=== PATIENT | female | born 1960 | race Caucasian/White ===

== ENCOUNTER 2019-04-08 07:53 | Day surgery (SDC) | payer OTHER ==
[2019-04-08] VITALS (9 sets, daily range): BP systolic 109–155; BP diastolic 68–91; PULSE 71–80; RESP 16–23; Ht 165.1 cm; Wt 72.9 kg
[~2019-04-08] VITALS: Ht 165.1 cm; Wt 72.9 kg
[2019-04-08] MEDS ORDERED: LEVO100T82 PO (08:39)
[2019-04-08] MEDS ORDERED: METO-429 PO (08:40)
[2019-04-08] MEDS ORDERED: ATOR40TA68 PO (08:40)
[2019-04-08] MEDS ORDERED: AMIT25TA9 PO (08:41)
[2019-04-08] MEDS ORDERED: BUPIVACAINE 0.25% (MPF) 30 ML INJ ONE (11:19)
--- NOTE | 2019-04-08 11:21 | PREAC ---
Date/Time of Note Date/Time of Note DATE: 04/08/19 TIME: 11:19 Anesthesia Eval and Record Evaluation Time Pre-Procedure Interview DATE: 04/08/19 TIME: 11:19 Age 58 Sex female NPO: 8 hrs Preoperative diagnosis Right breast mass Planned procedure Excision of mass Past Medical History Past Medical History: Includes Cardio: HTN, Dyslipidemia Endo: Hypothyroid Surgery & Anesthesia Issues No known issue Meds Anticoagulation: No Beta Misael within 24 hr: Yes Reported Medications Amitriptyline Hcl* (Amitriptyline Hcl*) 25 Mg Tablet, 25 MG PO QHS, #30 TAB 04/08/19 Metoprolol Tartrate* (Lopressor*) 50 Mg Tab, 50 MG PO DAILY, #60 TAB 04/08/19 Atorvastatin* (Atorvastatin*) 40 Mg Tablet, 40 MG PO QHS, #30 TAB 04/08/19 Levothyroxine Sodium* (Levoxyl*) 100 Mcg Tablet, 100 MCG PO BEFORE BREAKFAST, #30 TAB 04/08/19 Meds reviewed: Yes Allergies Coded Allergies: omega-3 acid ethyl esters (Verified Allergy, Unknown, RASH, 04/08/19) Allergies Reviewed: Yes Labs/Studies Labs Reviewed: Reviewed by anesthesiologist test: N/A Pre-procedure Exam Last vitals Vital Signs Date Temp Pulse Resp B/P (MAP) Pulse Ox O2 O2 Flow FiO2 Time Delivery Rate 04/08/19 97.9 74 16 140/84 96 Room Air 09:45 (102) Airway: Adequate mouth opening Mallampati: Mallampati I Teeth: Normal Lung: Normal Heart: Normal ASA Physical Status ASA physical status: 2 Emergency: None Planned Anesthetic General/MAC: LMA Planned Pain Management Parenteral pain med Pre-operative Attestations Prior to commencing anesthesia and surgery, the patient was re-evaluated, there was verification of: *The patient's identity *The results of appropriate recent lab work and preoperative vital signs *The above evaluation not changing prior to induction *Anesthetic plan, risk benefits, alternative and complications discussed with patient/family; questions answered; patient/family understands, accepts and wishes to proceed. DALJIT EDDY MD April 08, 2019 11:21
[2019-04-08] MEDS ORDERED: CEFAZOLIN 1 GM INJ ONE (11:36)
[2019-04-08] MEDS ORDERED: ONDANSETRON 4 MG INJ ONE (11:36)
[2019-04-08] MEDS ORDERED: PROPOFOL 20 ML ONE (11:36)
[2019-04-08] MEDS ORDERED: LIDOCAINE 2% (SDV) 5 ML INJ ONE (11:36)
[2019-04-08] MEDS ORDERED: METOCLOPRAMIDE 10 MG INJ ONE (11:36)
--- NOTE | 2019-04-08 12:20 | OPR ---
Date/Time of Note Date/Time of Note DATE: 04/08/19 TIME: 12:17 Operative Report Procedure Date: April 08, 2019 Preoperative Diagnosis right breast mass Postoperative Diagnosis same Operation/Procedure Performed 1. excision of right breast mass 5 cm mass 5 cm incision 2. localized adjacent tissue transfer with the use of skin flaps 10 sq cm defect of right breast 3. 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 She required surgical excision of the right breast mass. Risks alternatives benefits and percent were discussed the patient. Patient expressed understanding and consents to the operation. Procedure Description Patient is taken to the OR and prepped and draped in usual sterile fashion. Surgical timeout was performed. IV antibiotics given. Elliptical incision was made with a 15 blade around the right breast mass. Dissection with cautery was carried onto the mass and the mass was circumferentially excised. Good hemostasis established. Due to tissue defect localized adjacent tissue transfer with use of skin flaps was performed. Multilayer closer with interrupted 3-0 Vicryl in interrupted 2-0 Vicryl. Skin is closed using skin mariana. Therapeutic subcutaneous local anesthesia was injected at the incision site. Steri-Strips and dry dressings were applied. Daysi BUTLER April 08, 2019 12:20
[2019-04-08] MEDS ORDERED: ONDANSETRON 4 MG INJ IV PRN (12:30)
[2019-04-08] MEDS ORDERED: METOCLOPRAMIDE 10 MG INJ IV PRN (12:30)
[2019-04-08] MEDS ORDERED: MEPERIDINE 25 MG INJ IV PRN (12:30)
[2019-04-08] MEDS ORDERED: MIDAZOLAM 1 MG/ML 2 ML INJ IV PRN (12:30)
[2019-04-08] MEDS ORDERED: FENTAnyl 50 MCG/ML VIAL IV PRN ×3 (12:30)
[2019-04-08] MEDS ORDERED: hydrALAzine 20 MG INJ IV PRN (12:30)
[2019-04-08] MEDS ORDERED: EPHEDrine 25 MG/5 ML SYG IV PRN (12:30)
[2019-04-08] MEDS ORDERED: HYDROCODONE/APAP (5/325) TAB PO ONE (12:30)
[2019-04-08] MEDS ORDERED: OXYCODONE/ACETAMINOPHEN (5/325) TAB PO PRN ×2 (12:30)
[2019-04-08] MEDS ORDERED: LABETALOL HCL 20MG INJ IV PRN (12:30)
[2019-04-08] MEDS ORDERED: DIPHENHYDRAMINE 50 MG INJ IV PRN (12:30)
--- NOTE | 2019-04-08 13:09 | PAC ---
Date/Time of Note Date/Time of Note DATE: 04/08/19 TIME: 13:09 Post-Anesthesia Notes Post-Anesthesia Note Last documented vital signs Vital Signs Date Temp Pulse Resp B/P (MAP) Pulse Ox O2 O2 Flow FiO2 Time Delivery Rate 04/08/19 97.3 71 18 155/91 97 Room Air 13:06 (112) Activity: WNL Respiratory function: WNL Cardiovascular function: WNL Mental status: Baseline Pain reasonably controlled: Yes Hydration appropriate: Yes Nausea/Vomiting absent: Yes DALJIT EDDY MD April 08, 2019 13:09
== END 2019-04-08 13:27 | disposition home or self-care (01) ==
LOC: SDS 07:53
PROVIDERS: ATTEND Surgery
DX: N60.81 Other benign mammary dysplasias of right breast (principal); I10 Essential (primary) hypertension; E03.9 Hypothyroidism, unspecified
CPT/HCPCS: 14000; 19120; 88307; J0690; J2175; J2405; J2765; Z7512; Z7610